=== PATIENT | male | born 1995 | race Caucasian/White ===

== ENCOUNTER 2017-09-10 00:36 | Inpatient (IN) | payer OTHER ==
[~2017-09-10] VITALS: Ht 180.3 cm; Wt 68.0 kg
--- NOTE | 2017-09-10 03:20 | NUR ---
PRE-ADMISSION NOTE Patient seen at intake, 21-year-old male, alert and oriented x4, currently intoxicated. Patient is ambulatory and coherent, able to answer questions and verbalize understanding about unit protocols and policies. Patient appears disheveled and flushed; he is malodorous with visible stains on his clothes. Vitals signs as follows: BP 114/67, HR 68, O2 sat 98%, RR 18/min, temp 98.8, and pain 6/10 at right wrist where there is a visible abscess. Will complete admission upon patients arrival to the unit.
[2017-09-10] MEDS ORDERED: BUPRENORPHINE HCL 2 MG TAB.SUBL SL PRN (03:30)
[2017-09-10] MEDS ORDERED: LOPERAMIDE HCL 2 MG CAPSULE PO PRN ×2 (03:30)
[2017-09-10] MEDS ORDERED: DIAZEPAM 5 MG TABLET PO PRN (03:30)
[2017-09-10] MEDS ORDERED: ONDANSETRON 4 MG/2 ML VIAL IM PRN (03:30)
[2017-09-10] MEDS ORDERED: CLONIDINE HCL 0.1 MG TABLET PO PRN (03:30)
[2017-09-10] MEDS ORDERED: LORAZEPAM 2 MG/1 ML VIAL IM PRN (03:30)
[2017-09-10] MEDS ORDERED: IBUPROFEN 400 MG TABLET PO PRN (03:30)
[2017-09-10] MEDS ORDERED: ACETAMINOPHEN 325 MG TABLET PO PRN (03:30)
[2017-09-10] MEDS ORDERED: DIAZEPAM 10 MG TABLET PO PRN ×2 (03:30)
[2017-09-10] MEDS ORDERED: MAG HYDROX/AL HYDROX/SIMETH 30 ML LIQUID UDC PO PRN (03:30)
[2017-09-10] MEDS ORDERED: MIRALAX 17 GM POWD.PACK PO PRN (03:30)
[2017-09-10] MEDS ORDERED: DICYCLOMINE HCL 20 MG TABLET PO PRN (03:30)
[2017-09-10] MEDS ORDERED: ONDANSETRON ODT 4 MG TAB.RAPDIS SL PRN (03:30)
[2017-09-10] MEDS ORDERED: METHOCARBAMOL 750 MG TABLET PO PRN (03:30)
[2017-09-10] MEDS ORDERED: diphenhydrAMINE 50 MG CAPSULE PO PRN (03:30)
[2017-09-10] MEDS ORDERED: MAGNESIUM HYDROXIDE 30 ML LIQUID UDC PO PRN (03:30)
[2017-09-10 04:00] VITALS: BP 114/67
--- NOTE | 2017-09-10 04:41 | NUR ---
PRN MOTRIN Patient reports pain at his right wrist 6/10 on pain scale. PRN Motrin 400mg given PO. Safety measures in place, side rails up x2, bed locked in low position, call light within reach. Will monitor for effectiveness.
[2017-09-10 04:46] LABS: *AMPHETAMINE, URINE POSITIVE (NEGATIVE); *BARBITURATE, URINE POSITIVE (NEGATIVE); *CANNABINOID, URINE NEGATIVE (NEGATIVE); *COCCAINE, URINE NEGATIVE (NEGATIVE); *OPIATE, URINE POSITIVE (NEGATIVE); *PHENCYCLIDINE SCREEN,URINE NEGATIVE (NEGATIVE)
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
--- NOTE | 2017-09-10 05:41 | NUR ---
PRN MOTRIN REASSESSMENT Patient reports pain at right wrist has improved, 4/10 on pain scale. PRN Motrin effective. Safety measures in place, side rails up x2, bed locked in low position, call light within reach. Will continue to monitor.
--- NOTE | 2017-09-10 07:25 | NUR ---
END OF SHIFT Patient is a 21-year-old male admitted today, 09/10/17, for benzo and opiate withdrawal. SN was unable to accurately assess initial COWS and CIWA since patient was intoxicated at time of admission; he is not currently experiencing withdrawal. Patient is alert and oriented x4, ambulatory and coherent. Patient received PRN Motrin for pain 08/27 at abscess site, right wrist. Patient slept for 1 hours, total intake of 680mL, void x1, stool x0. Patient is on fall and seizure precautions, he denies history of seizure. Safety measures in place, side rails up x2, bed locked in low position, call light within reach. Will endorse to day shift.
[2017-09-10 07:52] LABS: BASOPHILS % (AUTO) 0.5 % (0.0-2.0); EOSINOPHILS # (AUTO) 0.3 K/uL (0.0-0.7); EOSINOPHILS % (AUTO) 4.2 % (0.0-7.0); HEMATOCRIT 36.3 % (36.7-47.1); HEMOGLOBIN 12.9 g/dL (12.5-16.3); LYMPHOCYTES # (AUTO) 2.9 K/uL (20.0-40.0); LYMPHOCYTES % (AUTO) 45.3 % (20.5-51.5); MEAN CORPUSCULAR HEMOGLOBIN 30.7 uug (23.8-33.4); MEAN CORPUSCULAR HGB CONC 36 g/dL (32.5-36.3); MEAN CORPUSCULAR VOLUME 86.6 fL (73.0-96.2); MONOCYTES # (AUTO) 0.5 K/uL (2.0-10.0); MONOCYTES % (AUTO) 8.1 % (0.0-11.0); NEUTROPHILS # (AUTO) 2.6 K/uL (1.8-8.9); NEUTROPHILS % (AUTO) 41.9 % (38.5-71.5); PLATELET COUNT (AUTO) 224 K/uL (152-348); RED BLOOD CELL COUNT(AUTO) 4.19 MIL/uL (4.06-5.63); WHITE BLOOD COUNT (AUTO) 6.3 K/uL (3.6-10.2)
--- NOTE | 2017-09-10 07:55 | NUR ---
START OF SHIFT NOTE Received report from night nurse, patient admitted for Benzo/Opioid withdrawal. Patient currently not on any taper but PRN'S available for increased s/s of withdrawal. Per endorsement pt received PRN Motrin effective per night nurse, slept for 1 hours. Received pt asleep responsive to verbal and tactile stimuli. Breathing normal no SOB noted. Skin intact warm and dry to touch. All safety measures in place. Will cont to monitor.
[2017-09-10 08:00] VITALS: BP 107/61
[2017-09-10 08:03] LABS: ETHANOL < 3 MG/DL (0-0)
[2017-09-10 08:05] LABS: ALANINE AMINOTRANSFERASE 21 U/L (16-63); ALKALINE PHOSPHATASE 64 U/L (50-136); AMYLASE 37 U/L (25-115); ASPARTATE AMINOTRANSFERASE 19 U/L (15-37); BILIRUBIN,TOTAL 0.5 mg/dL (0.2-1.0); CARBON DIOXIDE 31 mmol/L (21-32); CHLORIDE 103 mmol/L (98-107); CREATININE 1.1 mg/dL (0.6-1.3); GLUCOSE 99 mg/dL (74-106); LIPASE 77 U/L (73-393); MAGNESIUM 2.2 mg/dL (1.8-2.4); POTASSIUM 3.3 mmol/L (3.5-5.1); TOTAL PROTEIN, SERUM 6.9 g/dL (6.4-8.2); UREA NITROGEN, BLOOD 16 mg/dL (7-18)
[2017-09-10 08:27] LABS: THYROID STIMULATING HORMONE 1.508 mIU/mL (0.358-3.740)
[2017-09-10] MEDS ORDERED: MULTIVITAMINS,THERAPEUTIC TABLET PO SCH (09:00)
[2017-09-10 12:00] VITALS: BP 94/56
[2017-09-10] MEDS ORDERED: POTASSIUM CHLORIDE 10 MEQ TAB.PRT.SR PO ONE (14:00)
--- NOTE | 2017-09-10 14:21 | NUR ---
LOW POTASSIUM LEVEL Patient's noted with low potassium level 3.3L new order to give Potassium chloride 30MEQ PO. Medication administered as ordered patient tolerated well.
[2017-09-10] MEDS ORDERED: PHENOBARBITAL 60 MG TABLET PO PRN ×2 (14:30)
[2017-09-10] MEDS ORDERED: IBUPROFEN 600 MG TABLET PO PRN (14:30)
[2017-09-10 16:00] VITALS: BP 105/68
[2017-09-10] MEDS: BUPRENORPHINE HCL 2 MG TAB.SUBL SL SCH ×2 (16:45→20:53)
[2017-09-10] MEDS: PHENOBARBITAL 60 MG TABLET PO SCH ×2 (16:45→20:53)
--- NOTE | 2017-09-10 19:16 | NUR ---
END OF SHIFT NOTE Gave report to night nurse, 21 year old male admitted for Benzo and Opioid withdrawal. Patient presented with anxiety, restless, agitation, yawning, body aches, runny nose, tearing eyes, stomach cramps. Patient started on Phenobarbital and Subutex taper at 1600 with COWS score 17, and CIWA -10. Patient has right wrist abscess and antibiotic to be start at night. Patient reported medications were effective on controlling his s/s of withdrawal. Patient rested in his room most of the shift. Encourage patient to attend groups activities to learn new coping skills. Encourage patient Po fluids as tolerated. All safety measures in place. Pt is stable at this time, night nurse will continue to monitor.
--- NOTE | 2017-09-10 19:17 | NUR ---
Start of shift note Received report from day shift nurse. Pt is a 21 yo male, A+Ox4, presenting to [facility] for Benzo/Opiate/Meth withdrawal. Pt noted to be anxious, agitated, and restless. Pt has HX of Anxiety, Panic disorder, depression, and ADHD which will be monitored during shift. Pt is on 5 day Phenobarbital and 5 day Subutex tapers, tolerated well. Respirations even and unlabored. Will continue to monitor.
[2017-09-10 20:08] VITALS: BP 107/62
[2017-09-10] MEDS: GABAPENTIN 300 MG CAPSULE PO SCH (20:53)
[2017-09-10] MEDS: LACTOBACILLUS RHAMNOSUS GG 1 EACH CAPSULE PO SCH (20:53)
[2017-09-10] MEDS: DOXYCYCLINE HYCLATE 100 MG TABLET PO SCH (20:53)
[2017-09-11 00:12] VITALS: BP 110/65
[2017-09-11 04:17] VITALS: BP 116/68
--- NOTE | 2017-09-11 07:00 | NUR ---
End of shift note Pt was continuously noted with agitation, anxiety, and restlessness. Pt remained in room for majority of shift except to get food from kitchen and to go smoke on smoking patio. Pt remained compliant and cooperative with all aspects of treatment. Pt was not given any PRN medications during shift. Pt is on 5 day Phenobarbital and 5 day Subutex tapers, tolerated well. Pt slept for a total of 7 HRS. Last COWS: 11 and Last CIWA: 10 @0400. Respirations even and unlabored. Will endorse to day shift nurse.
--- NOTE | 2017-09-11 07:30 | NUR ---
start of shift note: received pt from fast food shift supervisor nurse, pt is in stable condition at this time, no s/s of pain or discomfort. pt is currently sleeping. pt's last documented cows 11 and ciwa 10. pt is tolerating taper medications well. no A/r noted. pt is admitted to [facility] for benzo/opiate/meth withdrawal/dependence. will encourage pt to join groups and activities throughout today.
[2017-09-11] MEDS: DOXYCYCLINE HYCLATE 100 MG TABLET PO SCH ×2 (08:55→20:53)
[2017-09-11] MEDS: BUPRENORPHINE HCL 2 MG TAB.SUBL SL SCH ×4 (08:55→20:53)
[2017-09-11] MEDS: LACTOBACILLUS RHAMNOSUS GG 1 EACH CAPSULE PO SCH ×2 (08:55→20:53)
[2017-09-11] MEDS: GABAPENTIN 300 MG CAPSULE PO SCH ×2 (08:55→20:53)
[2017-09-11] MEDS: PHENOBARBITAL 60 MG TABLET PO SCH ×3 (08:55→20:53)
[2017-09-11] MEDS ORDERED: TUBERCULIN,PURIF.PROT.DERIV. 5 TU/0.1 ML TEST ID ONE (09:00)
--- NOTE | 2017-09-11 09:00 | NUR ---
pt refused tb skin test.
[2017-09-11 09:51] VITALS: BP 112/67
[2017-09-11 12:57] VITALS: BP 106/65
[2017-09-11 13:06] LABS: HEPATITIS B SURFACE AG Negative (Negative)
--- NOTE | 2017-09-11 14:56 | NUR ---
PRN administration: pt with complaints of wrist abscess pain, area is ted and tender to touch, pain scale 9/10. will inform MD and re-assess effectiveness of medication
--- NOTE | 2017-09-11 15:26 | NUR ---
pt communication and re-assessment: when re-assessing pt's use history D/T testing positive for phenobarbital, pt verbalized my xanax was probably laced with pheno, i would never take pheno on purpose or "recreational use"
--- NOTE | 2017-09-11 15:56 | NUR ---
PRN RE-ASSESSMENT: PT VERBALIZED MOTRIN WAS EFFECTIVE PAIN SCALE IS NOW 2/10. SITE (WRIST) IS STILL PAINFUL BUT NOT BAD
[2017-09-11 17:13] VITALS: BP 100/60
--- NOTE | 2017-09-11 17:50 | NUR ---
offered warm compress to pt for abscess, pt at this time verbalized he'll use it later
--- NOTE | 2017-09-11 18:58 | NUR ---
end of shift note: pt is in stable condition at this time, pt is [facility] for opiate/benzo withdrawal/dependence. pts last documented cows 11 and ciwa 10. pt has abscess on right wrist, was seen by Dr. Cowan with no new orders and to just apply a warm compress. pt is on ATB therapy without adverse reaction. pt is on a pheno and subutex taper. pt without adverse reactions and pt refused 1500 subutex because he felt he was getting too much. explained risk and benefits of refusing medication. pt refused TB SKIN test. will endorse pt to pack master nurse
--- NOTE | 2017-09-11 18:58 | NUR ---
START OF SHIFT NOTE: Endorsed 21 year old male tolerated well with ordered 5 day Phenobarbital and 5 day Subutex Taper for Benzodiazepines (Xanax), Opioid (Heroin), and Methamphetamine withdrawal. Withdrawal symptoms will be closely monitored. The patient reports allergy to Ativan, m/b pineda/hives, Regular Diet, is on Full Code, Seizures and Fall Precautions. The patient denies seizures history. The patient alert and oriented x4, cooperative, with soft and clear speech. He is ambulatory with stable gait. The patient appears with anxious affect and irritable mood. Emotional support and reassuring provided. The patient encouraged to express his feelings. The most recent COWS=11, CIWA=10 at 1600: During day shift patient c/o anxiety, agitation, irritability, restlessness, fatigue, nervousness, tremors, generalized body aches, sweating, nasal congestion, and abdominal cramps. The patient remains compliant with treatment, medications, and diet regime. Encouraged to fluids intake as tolerated. Encouraged to attend group activities. Safe and calm environment with minimized noises was provided. All needs met. Safety measures: Call light within reach, bed is locked in lowest position, and padded bed rails up bilaterally. The patient endorsed by outgoing day shift nurse. Will continue to monitor closely.
[2017-09-11 20:00] VITALS: BP 111/72
[2017-09-12] VITALS: BP 114/68
[2017-09-12 04:14] VITALS: BP 92/56
--- NOTE | 2017-09-12 07:11 | NUR ---
END OF SHIFT NOTE Presented patient is a 21 year old male admitted for Benzodiazepines (Xanax), Opioid(Heroin), and Methamphetamine withdrawal, tolerated well with 5 day Phenobarbital and 5 day Subutex Taper. The patient reports allergy to Ativan, Regular diet, is on Full Code, Fall and Seizures Precautions. He is denies seizures history. The patient is alert and oriented x4, cooperative, with steady gait, and clear soft speech. Affect anxious. Mood labile. Initial COWS=15, CIWA=13 at 2000, COWS=12, CIWA=11 at 0000. Last COWS=12, CIWA=10 at 0415. The patient presented with anxiety, agitation, nervousness, tremors, irritability, gooseflesh skin, sweating, yawning, restlessness, and fatigue. No S/S of distress noted during my shift. VSWNL. Respirations are unlabored and even. Skin is warm and dry to touch: Abscess on Right forearm r/t drug use noted. Warm compress was applied. The patient is on ordered antibiotic (Vancomycin)Tx. No PRN Medications given last night auditor. Patient remains compliant with treatment, medications, and diet regime. Safe and calm environment with minimized noises was provided. Patient slept for 7 hours, intake 1,091 ml, voided x2. All needs met. Safety measures: Call light within reach, bed is locked in the lowest position, and padded bed rails up x2. Patient endorsed to day shift nurse.
--- NOTE | 2017-09-12 07:40 | NUR ---
START OF SHIFT Pt is a 21 yr old male, admitted on 09/10/17 for Benzo/Opiate withdrawal and is on 5 day Phenobarbital and 5 day Subutex taper as ordered. Medication allan well. Received report from night sift nurse. No PRN's were given during the night. Last CIWA score was 10 and COWS score was 12 at 0415. Pt slept for 7 hrs and remains in bed sleeping with respirations even and unlabored. Skin is intact, warm and moist to touch. Pt is noted with right wrist abscess. Warm compress was provided during the night. Will continue to monitor. Safety precautions observed. Call light is within reach. Will continue to f/u.
[2017-09-12 08:00] VITALS: BP 107/67
[2017-09-12] MEDS: GABAPENTIN 300 MG CAPSULE PO SCH ×2 (08:45→21:10)
[2017-09-12] MEDS: LACTOBACILLUS RHAMNOSUS GG 1 EACH CAPSULE PO SCH ×2 (08:46→21:09)
[2017-09-12] MEDS: DOXYCYCLINE HYCLATE 100 MG TABLET PO SCH ×2 (08:46→21:10)
[2017-09-12] MEDS ORDERED: BUPRENORPHINE HCL 2 MG TAB.SUBL SL SCH (09:00)
[2017-09-12] MEDS ORDERED: PHENOBARBITAL 60 MG TABLET PO SCH (09:00)
--- NOTE | 2017-09-12 09:00 | NUR ---
MEDICATION REFUSED Pt refused to take Phenobarbital 30mg PO as scheduled at 0900 for s/s of w/d. Pt states he feels "it's too strong" for him. Pt was educated on medication regimen and the risks and benefits of the medication. Pt verbalized understanding but continued to refuse. Dr. Chaudhry is made aware
[2017-09-12 12:00] VITALS: BP 93/75
[2017-09-12] MEDS: PHENOBARBITAL 60 MG TABLET PO SCH ×2 (15:00→21:09)
[2017-09-12] MEDS: BUPRENORPHINE HCL 2 MG TAB.SUBL SL SCH ×2 (15:00→21:09)
--- NOTE | 2017-09-12 15:00 | NUR ---
MEDICATION REFUSE Pt refused to take Subutex 2mg SL and Phenobarbital 30mg PO as scheduled at 1500. Pt was educated on the risks and benefits of not taking the medication including the possibility of having a seizure from Benzo/ETOH withdrawal. Pt verbalized understanding the risks and benefits of not consuming the medication but continued to refuse. Dr. Chaudhry was made. Will continue to monitor.
[2017-09-12 16:00] VITALS: BP 108/57
--- NOTE | 2017-09-12 19:00 | NUR ---
END OF SHIFT Pt is a 21 yr old male, AA&Ox4. Pt was admitted on 09/10/17 for Benzo/Opiate withdrawal. Phenobarbital and Subutex taper was changed from a 5 day to a 4 day Subutex and Phenobarbital taper. Pt has been refusing to take Phenobarbital at 0900 and 1500 as scheduled and refusing to take Subutex at 1500 as scheduled. Pt states, "I don't want to take it, it's too much". Pt was educated on the risks and benefits of the medication regimen. Dr. Chaudhry was made aware. Pt is noted with flat affect. Pt c/o anxiety and chills. No PRN's were given. Last COWS score was 6 and CIWA score was 7 at 1600. Pt was given warm compress for right wrist abscess. Pt is on fall and seizure precautions. Endorsed to night filler nurse to continue with care.
--- NOTE | 2017-09-12 19:30 | NUR ---
START OF SHIFT Pt is a 21 y/o male admitted on 09/10/17 for benzo, opiate and meth withdrawal. Pt on a 4 day Phenobarbital and 4 day Subutex taper, tolerating well. Pt refused scheduled morning and afternoon Phenobarbital and scheduled afternoon Subutex. Last COWS 6 and CIWA 7 and no PRNs administered during day shift. Upon assessment pt presents with anxiety, agitation, flat affect, intermittent chills, intermittent sweats, difficulty sleeping, and restlessness. Pt complains of pain in right wrist at site of abscess, warm compress requested. Medications due. Safety measures in place. Call light within reach. Will continue to monitor.
[2017-09-12 20:00] VITALS: BP 108/66
--- NOTE | 2017-09-13 | NUR ---
COWS/CIWA DEFERRED AND VITALS REFUSED Pt laying in bed with eyes closed, COWS/CIWA deferred, to be assessed when pt is awake per orders. Vitals refused. Respirations even and unlabored. Safety measures in place. Call light within reach. Will continue to monitor.
--- NOTE | 2017-09-13 07:03 | NUR ---
END OF SHIFT Pt is a 21 y/o male admitted on 09/10/17 for benzo, opiate and meth withdrawal. Pt on a 4 day Phenobarbital and 4 day Subutex taper, tolerating well. Pt presented with anxiety, agitation, flat affect, intermittent chills, intermittent sweats, difficulty sleeping, and restlessness. Pt complains of pain in right wrist at site of abscess, warm compress requested. Scheduled medications administered, effective in S/S of withdrawal as verbalized by pt. Last COWS 7 and CIWA 8. Pt slept 7 hours. Intake 1000 ml, void x 1, stool x 0. Safety measures in place. Call light within reach. Pts needs have been met. Endorsed to day shift nurse.
--- NOTE | 2017-09-13 07:30 | NUR ---
Start of Shift Corrugator Helper received report on 21 year old male admitted to [facility] on 09/10/17 for medical management of Benzodiazepine, Heroin and Methamphetamine withdrawals. Pt endorses an allergy to Ativan, full code and regular diet. PMH to include multiple orthopedic surgeries. No history of seizures. PPH to include anxiety, panic DO, depression and ADHD. Pt currently on a Phenobarbital and Subutex taper, tolerating well with last COWS 7 and CIWA 8, per NOC report. No PRN medication administered on NOC, per report. Corrugator Helper encounters pt in pts room, resting with eyes closed and even and unlabored respirations at 14. Bed in low position with wheels locked and side rails up x2. Will continue to monitor, support and encourage according to plan of care.
[2017-09-13 08:55] VITALS: BP 119/69
[2017-09-13] MEDS ORDERED: BUPRENORPHINE HCL 2 MG TAB.SUBL SL SCH ×3 (09:00)
[2017-09-13] MEDS ORDERED: PHENOBARBITAL 60 MG TABLET PO SCH ×2 (09:00)
[2017-09-13] MEDS: GABAPENTIN 300 MG CAPSULE PO SCH ×3 (09:23→20:50)
[2017-09-13] MEDS: LACTOBACILLUS RHAMNOSUS GG 1 EACH CAPSULE PO SCH ×2 (09:23→20:50)
[2017-09-13] MEDS: DOXYCYCLINE HYCLATE 100 MG TABLET PO SCH ×2 (09:23→20:50)
[2017-09-13] MEDS ORDERED: DOXY100T2 PO (09:49)
[2017-09-13] MEDS ORDERED: CLON0.1T14 PO (09:49)
[2017-09-13] MEDS ORDERED: DICY20TA28 PO (09:49)
[2017-09-13] MEDS ORDERED: IBUP-1955 PO (09:49)
[2017-09-13] MEDS ORDERED: DIPH50CA37 PO (09:49)
[2017-09-13] MEDS ORDERED: METH-406 PO (09:49)
[2017-09-13] MEDS ORDERED: GABA-534 PO (09:49)
[2017-09-13] MEDS ORDERED: EPINEPHRINE 1:10,000 1 MG/10 ML DISP.SYRIN IV ONE (10:45)
[2017-09-13] MEDS ORDERED: KETOROLAC TROMETHAMINE 30 MG INJ IM PRN (11:00)
[2017-09-13] MEDS ORDERED: LIDOCAINE 1%-EPI 1:100,000 20 ML VIAL IJ ONE (11:15)
--- NOTE | 2017-09-13 11:56 | NUR ---
Endorsement Endorsed care of pt to day RN. Pt stable and preparing for discharge tomorrow
[2017-09-13 12:00] VITALS: BP 120/60
[2017-09-13 16:36] VITALS: BP 155/84
--- NOTE | 2017-09-13 19:06 | NUR ---
START OF SHIFT NOTE: Endorsed 21 year old male completed with ordered 5 day Phenobarbital and 5 day Subutex Taper for Benzodiazepines (Xanax), Opioid (Heroin),and Methamphetamine withdrawal, and tolerated well. Withdrawal symptoms was closely monitored. The patient reports allergy to Ativan, m/b pineda/hives, Regular Diet, is on Full Code, Seizures and Fall Precautions. The patient denies seizures history. The patient alert and oriented x4, cooperative, with soft and clear speech. He is ambulatory with stable gait. The patient appears with flat affect and anxious mood. Emotional support and reassuring provided. The patient encouraged to express his feelings. Education provided to use of Relaxation Techniques: Deep breathing exercises, guided imagery, and visualization. Patient noted to be disheveled, unshaven, unkempt, and uncombed. Educated in safety and hygiene care. Encouraged to independently perform hygiene care. The most recent COWS=8, CIWA=8 at 1600: The patient c/o anxiety, agitation, irritability, restlessness, fatigue, nervousness, tremors, generalized body aches, and sweating. The patient remains compliant with treatment, medications, and diet regime. Encouraged to fluids intake as tolerated. Encouraged to attend group activities. Patient scheduled for discharging tomorrow at 0930. Safe and calm environment with minimized noises was provided. All needs met. Safety measures: Call light within reach, bed is locked in lowest position, and padded bed rails up bilaterally. The patient endorsed by outgoing day shift nurse. Will continue to monitor closely.
--- NOTE | 2017-09-13 19:06 | NUR ---
End of Shit Note Pt. is a 21 y/o male admitted for the medically managed withdrawal from benzodiazepines, opiates, and methamphetamine salts. Pt. was placed on a 5 day Phenobarbital and 5 day Subutex taper to manage his withdrawal symptoms. Pt. is now however on no taper medications. Pt. had a I and D at bed side performed by Dr. Cowan. Pt. tolerated procedure well. Picture in chart of wound post procedure. Last COWs 12 and CIWA 12 at 1600. Pt. presents with facial flushing, anxiety, agitation and fine hand tremors. Pt. is alert and orientated x 4 and denies SI and HI. Pt. is set to be discharged tomorrow. Pts educated on discharge plan and verbalize understanding. Encouraged to pt. to verbalize any concerns and emotions. NO PRNs given during shift. Will endorse pt.s care to oncoming shift.
[2017-09-13 20:00] VITALS: BP 113/72
--- NOTE | 2017-09-13 20:50 | NUR ---
PRN BENADRYL 50 MG PO ADMINISTRATION PRN Benadryl 50 mg PO administrated for insomnia. Patient tolerated well. Safe and calm environment with minimized noises was provided. All needs met. Safety measures: Call light within reach, bed locked in lowest position, and padded bed rails up bilaterally. Will continue to monitor closely.
--- NOTE | 2017-09-13 21:50 | NUR ---
PRN BENADRYL PO RE-ASSESSMENT Patient is sleeping. RR 16. Respirations even and unlabored. PRN Benadryl 50 mg PO administrated for insomnia at 2049 was effective. Safe and calm environment with minimized noises was provided. All needs met. Safety measures: Call light within reach, bed locked in lowest position, and padded rails up bilaterally. Will continue to monitor closely.
--- NOTE | 2017-09-14 | NUR ---
VS REFUSED, CIWA /COWS DEFERRED VS refused, CIWA/COWS deferred at 0000 due to patient sleeping; to be assessed and scored while patient is awake. Respirations are even and unlabored. RR:16. Safe and calm environment with minimized noises was provided. All needs met. Safety measures: Call light within reach bed is locked in lowest position, and padded bed rails up bilaterally.
--- NOTE | 2017-09-14 04:00 | NUR ---
VS REFUSED, CIWA /COWS DEFERRED VS refused, CIWA/COWS deferred at 0400 due to patient sleeping; to be assessed and scored while patient is awake. Respirations are even and unlabored. RR:14. Safe and calm environment with minimized noises was provided. All needs met. Safety measures: Call light within reach bed is locked in lowest position, and padded bed rails up bilaterally.
--- NOTE | 2017-09-14 07:14 | NUR ---
END OF SHIFT NOTE: Presented patient is a 21 year old male admitted for Benzodiazepines(Xanax), Opioid(Heroin), and Methamphetamine withdrawal. He is completed 5 day Phenobarbital and 5 Day Subutex taper, which tolerated well. No S/S of ASE noted. Patient remains compliant with treatment, medications, and diet regime. Withdrawal symptoms was closely monitored. Patient is alert and orientedx4, cooperative. His mood and affect are anxious and flat. COWS=10,CIWA=12 at 2000: The patient presented with anxiety, agitation, nervousness,tremors, sweating, yawning, restlessness, and fatigue VS refused, COWS/CIWA deferred for 0000 and 0400 due patient sleeping. PRN Benadryl 50 mg PO administrated for insomnia at 2049, and was effective. Skin remains warm, and dry to touch. The patient has clean, intact dressing on Right forearm r/t I&D was done on 10/13/2017: Pictures taken and placed in chart. PRN Benadryl 50 mg PO administrated for insomnia, and was effective. Encouraged to increase oral fluids intake as tolerated. Encouraged to attend groups activities. Patient scheduled for discharging today. Calm and safety environment with minimized noises was provided. Patient slept 8 hours, intake 500 ml, voided x1. All needs met. Safety measures in the place: Call light within reach, bed in the lowest position locked, padded rails up x2. Patient endorsed to day shift nurse
--- NOTE | 2017-09-14 07:31 | NUR ---
BEGINNING OF SHIFT Patient endorsement report received from shift boss nurse, all pertinent information. Patient is a 21 year old male admitted on 09/10/2017, with admitting Dx: BZO/Opiate withdrawal, patient also with substance use of methamphetamine. Patient completed 5 day phenobarbital and 5 day subutex taper. Patient is scheduled to be discharged this morning, noted self motivated towards sobriety. . Per shift boss patient with last ciwa score of: 12, last cow score of: 10. patient received PRN: Benadryl, as per shift boss medication effective. Patient slept for 8 hours. patient skin is intact. Patient awake, alert and oriented x4. Educated patient regarding plan of care for the day, and medication regimen. Safety measures are in place. call light kept with in reach. will continue to monitor closely.
[2017-09-14 08:10] VITALS: BP 111/63
[2017-09-14] MEDS: GABAPENTIN 300 MG CAPSULE PO SCH (08:49)
[2017-09-14] MEDS: DOXYCYCLINE HYCLATE 100 MG TABLET PO SCH (08:49)
[2017-09-14] MEDS: LACTOBACILLUS RHAMNOSUS GG 1 EACH CAPSULE PO SCH (08:49)
[2017-09-14] MEDS ORDERED: BUPRENORPHINE HCL 2 MG TAB.SUBL SL SCH ×2 (09:00)
[2017-09-14] MEDS ORDERED: PHENOBARBITAL 60 MG TABLET PO SCH ×2 (09:00)
--- NOTE | 2017-09-14 09:32 | NUR ---
DISCHARGE Patient discharged off the unit at 0932 in stable conditions, prior to discharge patient was provided with education and teaching regarding all discharge instructions. Patient noted self motivated towards sobriety. patient with last cow score of: 5, and ciwa score of: 5. vital signs WNL. patients wound care completed prior to discharge. s/p ID to right wrist, area was cleansed with normal saline, patted dry and wrapped with Kerlix as ordered, wound with no s/sx of infx/bleeding noted. Patients discharge instructions, and prescriptions were placed in patients personal duffel bag. Patient off the unit at 0932 in stable condition.
[2017-09-15] MEDS ORDERED: BUPRENORPHINE HCL 2 MG TAB.SUBL SL SCH (09:00)
== END 2017-09-14 09:32 | DRG 895 ==
LOC: SRC 02:28
PROVIDERS: ADMIT Internal Medicine; ATTEND Internal Medicine
PROC: HZ2ZZZZ Detoxification Services for Substance Abuse Treatment (ICD-10-PCS; principal; 2017-09-10)
PROC: HZ41ZZZ Group Counseling for Substance Abuse Treatment, Behavioral (ICD-10-PCS; 2017-09-12)
PROC: 0H9DXZX Drainage of Right Lower Arm Skin, External Approach, Diagnostic (ICD-10-PCS; 2017-09-13)
DX: F13.230 Sedative, hypnotic or anxiolytic dependence with withdrawal, uncomplicated (principal); L03.113 Cellulitis of right upper limb; L02.413 Cutaneous abscess of right upper limb; F11.23 Opioid dependence with withdrawal; F15.23 Other stimulant dependence with withdrawal; Z59.0 Homelessness; F17.210 Nicotine dependence, cigarettes, uncomplicated; F90.9 Attention-deficit hyperactivity disorder, unspecified type; F41.0 Panic disorder [episodic paroxysmal anxiety]; Z81.1 Family history of alcohol abuse and dependence; Z86.74 Personal history of sudden cardiac arrest; Z65.3 Problems related to other legal circumstances; Z91.14 Patient's other noncompliance with medication regimen; Z88.8 Allergy status to other drugs, medicaments and biological substances; S61.531S Puncture wound without foreign body of right wrist, sequela; T81.4XXS Infection following a procedure, sequela; X78.8XXS Intentional self-harm by other sharp object, sequela; E87.6 Hypokalemia; F32.9 Major depressive disorder, single episode, unspecified
CPT/HCPCS: 36415; 70030-TC; 80307; 80324; 80345; 80346; 80361; 83690; 83735; 84443; 85025; 86592; 86705; 86803; 87340; 87806; A4663; G0480; J0171; J3490; J8499; Q0163